=== PATIENT | male | born 1960 | race Caucasian/White ===

== ENCOUNTER 2019-09-21 16:08 | Inpatient (IN) | payer BC, OTHER ==
[~2019-09-21] VITALS: Ht 177.8 cm; Wt 87.7 kg
[~2019-09-21 16:08] MED LIST: ETOMIDATE 2 MG/ML 10 ML VIAL IVP ONE; SUCCINYLCHOLINE CHLORIDE 20 MG/ML 10 ML VIAL IVP ONE
[2019-09-21] MEDS ORDERED: LACTULOSE 20 GM/30 ML UDCUP ONE (17:38)
[2019-09-21 18:12] LABS: BASOPHILS % (AUTO) 0.4 % (0.0-5.0); EOSINOPHILS % (AUTO) 2.1 % (0.0-8.0); HEMATOCRIT 29.7 % (42-54); LYMPHOCYTES % (AUTO) 8.6 % (21.0-51.0); MEAN CORPUSCULAR HEMOGLOBIN 33.2 pg (27.0-33.0); MEAN CORPUSCULAR VOLUME 89.7 fL (79-99); MONOCYTES % (AUTO) 9.2 % (3.0-13.0); PLATELET COUNT (AUTO) 175 K/uL (130-400); RED BLOOD CELL COUNT(AUTO) 3.31 MIL/uL (4.50-6.20); RED CELL DISTRIBUTION WIDTH 19.3 % (11.0-15.5); WHITE BLOOD COUNT (AUTO) 17.2 K/uL (4.8-10.8)
[2019-09-21 18:27] LABS: INR 1.82 (0.85-1.15); PARTIAL THROMBOPLASTIN TIME 35.5 SEC (26.3-35.5); PROTHROMBIN TIME 18.7 SEC (9.6-11.6)
[2019-09-21 18:38] LABS: ALBUMIN 1.8 g/dL (3.5-5.0); CREATININE 6.3 mg/dL (0.5-1.5); POTASSIUM 3.5 mmol/L (3.5-5.1); TOTAL PROTEIN, SERUM 7.9 g/dL (6.0-8.3)
[2019-09-21 18:40] LABS: BILIRUBIN,DIRECT 13.2 mg/dL (0.0-0.3); BILIRUBIN,TOTAL 17.4 mg/dL (0.2-1.0)
[2019-09-21] MEDS: SODIUM CHLORIDE 0.9% 1000ML 1,000 ML IV SCH (20:30)
[2019-09-21] MEDS ORDERED: ALBUMIN (HUMAN) 25% 100 ML IV ONE (20:48)
[2019-09-21] MEDS ORDERED: CEFTRIAXONE SODIUM 1 GM ONE (20:48)
[2019-09-21] MEDS ORDERED: MIDODRINE HCL 5 MG TABLET ONE (20:49)
[2019-09-21] MEDS ORDERED: OCTREOTIDE ACETATE 100 MCG/ML AMP ONE (20:49)
[2019-09-21] MEDS ORDERED: OCTREOTIDE ACETATE 100 MCG/ML AMP SQ ONE (21:00)
[2019-09-21] MEDS ORDERED: CEFTRIAXONE SODIUM 1 GM IVP SCH (21:00)
[2019-09-21] MEDS ORDERED: ALBUMIN (HUMAN) 25% 100 ML IV SCH (21:00)
[2019-09-21] MEDS ORDERED: SODIUM CHLORIDE 0.9% 50 ML IV ONE (21:22)
--- NOTE | 2019-09-21 23:00 | NUR ---
ADMISSION 222 RECEIVED ED REPORT FROM NELLIE BLANK RN 2303 PT ADMITTED TO RM 219 ACCOMPANIED BY FARHEEN PT CONNECTED TO BEDSIDE MONITOR NO MEDS RECONCILE PT NOT ON ANY HOME MEDS ADMISSION ASSESSMENT AND ADMISSION DATABASE COMPLETE PT IN NO DISTRESS AT THIS TIME WILL CONTINUE TO MONITOR.
[2019-09-21 23:16] VITALS: BP 99/65
[2019-09-21] MEDS: MIDODRINE HCL 5 MG TABLET PO SCH (23:28)
[2019-09-21 23:30] VITALS: BP 89/52
[2019-09-21 23:45] VITALS: BP 88/61
[2019-09-22] VITALS (73 sets, daily range): BP systolic 70–134; BP diastolic 34–95
[2019-09-22] MEDS: LACTULOSE 20 GM/30 ML UDCUP PO SCH ×4 (00:16→17:23)
--- NOTE | 2019-09-22 00:30 | NUR ---
UPDATE 0030 PT COUGHING UP MODERATE AMOUNT OF BRIGHT RED BLOOD FOLLOWED BY LARGE BLOODY BM X2 WITH CLOTS, STEEL FLOOR PAN PLACING SUPERVISOR CLARISSE MEDLEY NOTIFIED, ORDERS RECIEVED AND CARRIED OUT. WILL CONTINUE TO MONITOR.
[2019-09-22 02:10] LABS: HEMATOCRIT 26.8 % (42-54); MEAN CORPUSCULAR HEMOGLOBIN 33.7 pg (27.0-33.0); MEAN CORPUSCULAR HGB CONC 37.7 g/dL (32.0-36.0); MEAN CORPUSCULAR VOLUME 89.3 fL (79-99); NUCLEATED RED BLOOD CELLS 0.2 % (0.0-0.19); PLATELET COUNT (AUTO) 157 K/uL (130-400); RED CELL DISTRIBUTION WIDTH 19.6 % (11.0-15.5); WHITE BLOOD COUNT (AUTO) 12.2 K/uL (4.8-10.8)
[2019-09-22 02:22] LABS: PROTHROMBIN TIME 20.4 SEC (9.6-11.6)
[2019-09-22 02:32] LABS: CREATININE 6.7 mg/dL (0.5-1.5); POTASSIUM 3.4 mmol/L (3.5-5.1); TOTAL PROTEIN, SERUM 7.4 g/dL (6.0-8.3)
--- NOTE | 2019-09-22 02:39 | NUR ---
UPDATE INFORMED GALINDO ROBB NP LAB/CRITICAL RESULTS, PT CONDITION DETERIORATING INCREASED RESPIRATORY DISTRESS PT NOT TOLERATING BIPAP ORDERED. CURRENTLY ON NON REBREATHER 100% ABG RESULTS REPORTED ADVISED PT NEEDS INTUBATION NEW ORDERS RECEIVED STATES WILL NOTIFY DR. DENNISON TO HAVE PT INTUBATED. WILL CONTINUE TO MONITOR
[2019-09-22 02:40] LABS: BILIRUBIN,TOTAL 17.1 mg/dL (0.2-1.0)
[2019-09-22 02:53] LABS: ABG BASE EXCESS -0.1 mmol/L (-2.0-3.0); ABG HCO3 23.6 mmol/L (21.0-28.0); ABG OXYGEN SATURATION 93.5 % (95.0-99.0); ABG PCO2 36 mmHg (35-48)
[2019-09-22] MEDS: FUROSEMIDE 10 MG/ML 4ML VIAL IV SCH (04:11)
[2019-09-22] MEDS ORDERED: SODIUM CHLORIDE 0.9% 250 ML IV ONE (04:19)
[2019-09-22] MEDS ORDERED: NOREPINEPHRINE BITARTRATE 1 MG/1 ML ML IV ONE (04:22)
[2019-09-22] MEDS ORDERED: ZOSYN 3.375GM+NS 50ML 50 ML IV SCH (04:30)
--- NOTE | 2019-09-22 04:40 | NUR ---
UPDATE DR. DENNISON AT BESIDE UPDATED ON PT CONDITION AND STATUS, PT INTUBATED AT 0455 AND 0530 RIGHT CVL IJ INSERTED NEW ORDERS RECEIVED AND CARRIED OUT. WILL CONTINUE TO MONITOR PT [address] YARIEL HOOPER INFORMED OF CONSULT AND PT STATUS NO EGD AT THIS TIME DUE TO PT CONDITION, NEW ORDERS RECIEVED AND CARRIED OUT.
[2019-09-22] MEDS ORDERED: MIDAZOLAM HCL 1 MG/ML 2ML VIAL ONE (04:43)
[2019-09-22] MEDS ORDERED: FENTANYL CITRATE PF 50 MCG/1 ML 2ML VIAL ONE (04:46)
[2019-09-22] MEDS ORDERED: SODIUM CHLORIDE 0.9% 500ML 500 ML IV ONE (05:11)
[2019-09-22] MEDS ORDERED: FENTANYL 2500MCG+NS 250ML 250 ML IV ONE (05:13)
[2019-09-22] MEDS: MIDAZOLAM 100MG-0.9% NS 100ML 100 ML IV SCH ×2 (05:15→22:15)
[2019-09-22 06:13] LABS: ABG BASE EXCESS -2.7 mmol/L (-2.0-3.0); ABG HCO3 22.2 mmol/L (21.0-28.0); ABG OXYGEN SATURATION 95.3 % (95.0-99.0); ABG PCO2 39 mmHg (35-48)
[2019-09-22] MEDS ORDERED: PANTOPRAZOLE 40 MG/VIAL IV SCH (06:30)
[2019-09-22] MEDS ORDERED: OCTREOTIDE ACETATE 500 MCG in SODIUM CHLORIDE 0.9% 97.5 ML IV SCH (06:30)
[2019-09-22] MEDS ORDERED: MIDAZOLAM 100MG-0.9% NS 100ML 100ML BAG IV ONE (06:45)
[2019-09-22] MEDS: CEFEPIME HCL 1 GM VIAL IVP SCH ×2 (07:35→17:23)
[2019-09-22] MEDS: PANTOPRAZOLE SODIUM 80 MG in SODIUM CHLORIDE 0.9% 100 ML IV SCH ×2 (07:36→17:24)
[2019-09-22] MEDS: PHYTONADIONE 10 MG in SODIUM CHLORIDE 0.9% 50 ML IV SCH (07:48)
[2019-09-22] MEDS ORDERED: LEVOFLOXACIN 500 MG/D5W 100 ML 100 ML IV SCH (08:00)
[2019-09-22 08:25] LABS: HEMATOCRIT 23.4 % (42-54); MEAN CORPUSCULAR HGB CONC 36.8 g/dL (32.0-36.0); MEAN CORPUSCULAR VOLUME 92.5 fL (79-99); PLATELET COUNT (AUTO) 179 K/uL (130-400); RED BLOOD CELL COUNT(AUTO) 2.53 MIL/uL (4.50-6.20); RED CELL DISTRIBUTION WIDTH 20.3 % (11.0-15.5)
[2019-09-22 08:41] LABS: INR 1.85 (0.85-1.15); PARTIAL THROMBOPLASTIN TIME 36.6 SEC (26.3-35.5)
[2019-09-22 08:42] LABS: ALBUMIN 1.9 g/dL (3.5-5.0); BILIRUBIN,TOTAL 14.6 mg/dL (0.2-1.0); CREATININE 6.8 mg/dL (0.5-1.5); POTASSIUM 3.6 mmol/L (3.5-5.1); TOTAL PROTEIN, SERUM 6.7 g/dL (6.0-8.3)
[2019-09-22 08:52] LABS: WHITE BLOOD COUNT (AUTO) 37.9 K/uL (4.8-10.8)
[2019-09-22] MEDS: SODIUM CHLORIDE 0.9% 1000ML 1,000 ML IV SCH ×3 (09:13→19:37)
[2019-09-22] MEDS: OCTREOTIDE ACETATE 100 MCG/ML AMP SQ SCH ×2 (09:31)
[2019-09-22] MEDS: MIDODRINE HCL 5 MG TABLET PO SCH ×3 (09:32→20:20)
[2019-09-22 09:44] LABS: BAND NEUTROPHILS % (MANUAL) 4 % (0-2); EOSINOPHILS % (MANUAL) 1 % (1-6); LYMPHOCYTES % (MANUAL) 1 % (22-44); MONOCYTES % (MANUAL) 3 % (2-9); SEGMENTED NEUTROPHILS % 91 % (40-70)
[2019-09-22 09:45] LABS: MAN.DIFF COMMENT-IMPRESSION MANUAL DIFFERENTIAL; PLATELET MORPHOLOGY COMMENT ADEQUATE
[2019-09-22] MEDS: NOREPINEPHRINE 4MG/NS 250ML 250 ML IV SCH ×2 (12:41→16:29)
--- NOTE | 2019-09-22 13:03 | NUR ---
[facility] made aware X2. That order has been placed for Vasopressin and need for medication. Pending Medication to be brought to us at this time.
[2019-09-22 13:07] LABS: HEMATOCRIT 21.5 % (42-54)
[2019-09-22] MEDS: VASOPRESSIN 20 UNITS in SODIUM CHLORIDE 0.9% 100 ML IV SCH ×2 (13:18→20:20)
[2019-09-22] MEDS: METRONIDAZOLE 500MG/100ML BAG 100 ML IV SCH ×3 (13:28→21:38)
--- NOTE | 2019-09-22 15:10 | NUR ---
DALTON PLAN VISITED WITH PATIENT. PATIENT VENTED BLOOD IN TUBE. CRITICAL CONDITION. HARISH WILL CONTINUE TO FOLLOW. Addendum: 09/22/19 at 1511 by LYLE JETT RN CM Amended: Links added.
[2019-09-22] MEDS: HYDROCORTISONE SOD SUCCINATE 100 MG/2 ML VIAL IV SCH (17:23)
[2019-09-22 18:47] LABS: HEMATOCRIT 22.5 % (42-54)
[2019-09-22] MEDS ORDERED: PHARMACY COMMUNICATION MISC SCH (19:45)
[2019-09-22] MEDS: NOREPINEPHRINE BITARTRATE 8 MG in SODIUM CHLORIDE 0.9% 250 ML IV SCH (20:15)
[2019-09-22] MEDS: ALBUMIN (HUMAN) 25% 50 ML IV SCH (21:28)
[2019-09-22] MEDS: OCTREOTIDE ACETATE 100 MCG/ML AMP IV SCH (22:09)
[2019-09-23] VITALS (45 sets, daily range): BP systolic 73–112; BP diastolic 43–68
[2019-09-23] MEDS: HYDROCORTISONE SOD SUCCINATE 100 MG/2 ML VIAL IV SCH ×4 (00:57→17:18)
[2019-09-23] MEDS: LACTULOSE 20 GM/30 ML UDCUP PO SCH ×2 (00:57→05:48)
[2019-09-23] MEDS: NOREPINEPHRINE BITARTRATE 8 MG in SODIUM CHLORIDE 0.9% 250 ML IV SCH ×2 (02:29→10:09)
[2019-09-23 04:10] LABS: HEMATOCRIT 22.8 % (42-54); MEAN CORPUSCULAR HEMOGLOBIN 33.3 pg (27.0-33.0); MEAN CORPUSCULAR VOLUME 92.7 fL (79-99); PLATELET COUNT (AUTO) 204 K/uL (130-400); RED BLOOD CELL COUNT(AUTO) 2.46 MIL/uL (4.50-6.20); RED CELL DISTRIBUTION WIDTH 20.6 % (11.0-15.5)
[2019-09-23 04:12] LABS: WHITE BLOOD COUNT (AUTO) 30.9 K/uL (4.8-10.8)
[2019-09-23 04:19] LABS: INR 1.93 (0.85-1.15); PARTIAL THROMBOPLASTIN TIME 38.3 SEC (26.3-35.5); PROTHROMBIN TIME 19.8 SEC (9.6-11.6)
[2019-09-23 04:30] LABS: BILIRUBIN,TOTAL 15.7 mg/dL (0.2-1.0); CREATININE 6.9 mg/dL (0.5-1.5); POTASSIUM 4.4 mmol/L (3.5-5.1); TOTAL PROTEIN, SERUM 6.8 g/dL (6.0-8.3)
[2019-09-23] MEDS: PANTOPRAZOLE SODIUM 80 MG in SODIUM CHLORIDE 0.9% 100 ML IV SCH ×2 (05:00→08:50)
[2019-09-23] MEDS: VASOPRESSIN 20 UNITS in SODIUM CHLORIDE 0.9% 100 ML IV SCH ×2 (05:01→13:33)
[2019-09-23] MEDS: METRONIDAZOLE 500MG/100ML BAG 100 ML IV SCH ×2 (05:48→14:00)
[2019-09-23] MEDS: ALBUMIN (HUMAN) 25% 50 ML IV SCH ×2 (05:48→14:00)
[2019-09-23] MEDS: OCTREOTIDE ACETATE 100 MCG/ML AMP IV SCH (05:48)
[2019-09-23] MEDS: CEFEPIME HCL 1 GM VIAL IVP SCH ×2 (05:48→17:18)
[2019-09-23] MEDS: SODIUM CHLORIDE 0.9% 1000ML 1,000 ML IV SCH (06:06)
[2019-09-23] MEDS: MIDODRINE HCL 5 MG TABLET PO SCH ×2 (08:10→14:00)
[2019-09-23] MEDS: PHYTONADIONE 10 MG in SODIUM CHLORIDE 0.9% 50 ML IV SCH (08:50)
[2019-09-23] MEDS ORDERED: THIAMINE HCL 100 MG/ML 2ML VIAL IVP SCH (09:00)
[2019-09-23 10:05] LABS: HEMATOCRIT 22.9 % (42-54)
[2019-09-23 10:13] LABS: ABG BASE EXCESS -3.5 mmol/L (-2.0-3.0); ABG HCO3 20.9 mmol/L (21.0-28.0); ABG OXYGEN SATURATION 92.4 % (95.0-99.0); ABG PCO2 36 mmHg (35-48)
[2019-09-23] MEDS ORDERED: FENTANYL CITRATE PF 0.05 MG/ML 1,000 MCG in SODIUM CHLORIDE 0.9% 100 ML IVPB SCH (11:30)
[2019-09-23] MEDS ORDERED: MIDAZOLAM 100MG-0.9% NS 100ML 100ML BAG IV SCH (11:30)
[2019-09-23] MEDS ORDERED: MIDAZOLAM 100MG-0.9% NS 100ML 100 ML IV PRN (11:45)
[2019-09-23] MEDS ORDERED: FENTANYL 2500MCG+NS 250ML 250 ML IV PRN (11:45)
[2019-09-23 12:48] LABS: APPEARANCE,URINE CLEAR (CLEAR); BILIRUBIN,URINE LARGE (NEGATIVE); GLUCOSE, URINE (UA) 100 mg/dL (NEGATIVE); KETONES,URINE 5 mg/dL (NEGATIVE); LEUKOCYTE ESTERASE ,URINE NEGATIVE (NEGATIVE); NITRATE,URINE POSITIVE (NEGATIVE); OCCULT BLOOD,URINE LARGE (NEGATIVE); PROTEIN,URINE 30 mg/dL (NEGATIVE)
[2019-09-23 12:53] LABS: CREATININE,URINE RANDOM 273 mg/dL (30-135); SODIUM,URINE RANDOM < 15 mmol/l (40-220)
[2019-09-23 13:06] LABS: COLOR,URINE Amber (YELLOW)
[2019-09-23] MEDS ORDERED: LORAZEPAM 2 MG/ML 1 ML VIAL IVP PRN (13:30)
--- NOTE | 2019-09-23 13:35 | NUR ---
[facility] REF LINE CALLED DUE TO FAMILY DISCUSSING WITHDRAWAL OF LIFE SUPPORT. REF #[id number].
[2019-09-23 13:45] LABS: AMORPHOUS SEDIMENT,UR Moderate /LPF (None Seen); BACTERIA,URINE Few /HPF (None Seen); SQUAMOUS EPITHELIAL CELL,UR Rare /HPF (0-2); WBC,URINE 0-1 /HPF (0-1)
--- NOTE | 2019-09-23 13:55 | NUR ---
UPDATED YUE FROM [facility]. PATIENT DOES NOT MEET CRITERIA. CALL WITH CARDIAC TIME OF .
--- NOTE | 2019-09-23 14:20 | NUR ---
FARHEEN MILIAN SIGNED DNR AND DIRECTIVE TO REMOVE LIFE SUPPORT. FAMILY WITH PATIENT AND SUPPORTING.
--- NOTE | 2019-09-23 14:30 | NUR ---
DR REZA AND DR DENNISON UPDATED.
--- NOTE | 2019-09-23 14:40 | NUR ---
MEDICATIONS AND VENTILATOR SUPPORT STOPPED PER FAMILY'S WISHES. PATIENT SNORING BUT APPEARS COMFORTABLE. EMOTIONAL SUPPORT CONTINUED TO BE PROVIDED.
[2019-09-23] MEDS: HYDROMORPHONE 1 MG/1 ML AMP IVP PRN ×3 (14:56→18:06)
[2019-09-23] MEDS ORDERED: ONDANSETRON HCL 4 MG/2 ML VIAL IVP PRN (17:15)
[2019-09-23] MEDS ORDERED: LACTULOSE 20 GM/30 ML UDCUP PO SCH (21:00)
--- NOTE | 2019-09-24 06:19 | NUR ---
Patient at 0607 with at bedside. Tosa updated with patient time of . Awaiting call [facility].
--- NOTE | 2019-09-24 06:27 | NUR ---
Dr. Schwartz notified on patient time of expiration.
--- NOTE | 2019-09-24 06:30 | NUR ---
CALLED TO RUTH PEREIRAY [phone] @ 0607 ON THIS DATE 09/24/19. ABSENCE OF APICAL AND CAROTID PULSE NOTED WITH USE OF STETHESCOPE. ABSENT RESPIRATIONS NOTED. NO BILATERAL PAPILLARY LIGHT REFLEXES NOTED. FAMILY AT BEDSIDE. DR. LITTLE REZA NOTIFIED. DECLINES AUTOPSY. HOME PENDING.
--- NOTE | 2019-09-24 06:47 | NUR ---
Lesa from [facility] contacted RN and notified that patient does not qualify. Patient was ruled out due to jaundice.
--- NOTE | 2019-09-24 08:00 | NUR ---
PER PT'S , POSTMORTEM CARE TO BE DONE AT THIS TIME
--- NOTE | 2019-09-24 08:35 | NUR ---
PT'[place] B[place] [facility] [place]
[2019-09-24] MEDS ORDERED: MULTIVITAMIN TABLET PO SCH (09:00)
== END 2019-09-24 06:06 | disposition expired | DRG 871 ==
LOC: EDH 16:08 → EDHIP 16:09 → 2CH 22:53
PROVIDERS: ADMIT Internal Medicine; ATTEND Internal Medicine
PROC: 5A1945Z Respiratory Ventilation, 24-96 Consecutive Hours (ICD-10-PCS; principal; 2019-09-21)
PROC: 0BH17EZ Insertion of Endotracheal Airway into Trachea, Via Natural or Artificial Opening (ICD-10-PCS; 2019-09-21)
PROC: 30233K1 Transfusion of Nonautologous Frozen Plasma into Peripheral Vein, Percutaneous Approach (ICD-10-PCS; 2019-09-21)
PROC: 02HV33Z Insertion of Infusion Device into Superior Vena Cava, Percutaneous Approach (ICD-10-PCS; 2019-09-22)
PROC: B548ZZA Ultrasonography of Superior Vena Cava, Guidance (ICD-10-PCS; 2019-09-22)
DX: A41.9 Sepsis, unspecified organism (principal); J96.01 Acute respiratory failure with hypoxia; J69.0 Pneumonitis due to inhalation of food and vomit; E43 Unspecified severe protein-calorie malnutrition; K76.7 Hepatorenal syndrome; R65.21 Severe sepsis with septic shock; D62 Acute posthemorrhagic anemia; N17.9 Acute kidney failure, unspecified; D68.4 Acquired coagulation factor deficiency; E87.1 Hypo-osmolality and hyponatremia; E87.2 Acidosis; K92.2 Gastrointestinal hemorrhage, unspecified; K70.30 Alcoholic cirrhosis of liver without ascites; K70.40 Alcoholic hepatic failure without coma; E86.1 Hypovolemia; F10.20 Alcohol dependence, uncomplicated; K70.11 Alcoholic hepatitis with ascites; K70.31 Alcoholic cirrhosis of liver with ascites; N18.9 Chronic kidney disease, unspecified; Z87.891 Personal history of nicotine dependence; Z68.27 Body mass index [BMI] 27.0-27.9, adult
CPT/HCPCS: 31500; 36415; 36430; 36600; 71045; 74176; 80048; 80053; 80076; 81001; 82140; 82570; 82803; 83605; 83690; 83935; 84300; 84550; 85014; 85018; 85025; 85027; 85610; 85730; 86850; 86900; 86901; 86922; 86927; 87071; 87205; 94002; 94003; A4344; C9113; G0378; J0330; J0692; J0696; J1170; J1720; J1940; J1956; J2250; J2354; J2405; J3010; J3411; J3430; J3490; J7030; J7040; P9017; P9046; P9047